=== PATIENT | male | born 1950 | race Caucasian/White ===

== ENCOUNTER → 2024-06-25 09:10 | Outpatient (REF) | payer OTHER, SELFPAY | LOC: HWRCS 09:10 | PROVIDERS: ATTENDING PHYSICIAN Nuclear Medicine Nuclear Cardiology; FAMILY PHYSICIAN Family Medicine | DX: I48.0 Paroxysmal atrial fibrillation (principal); I10 Essential (primary) hypertension; I34.0 Nonrheumatic mitral (valve) insufficiency | CPT/HCPCS: 93306 ==

== ENCOUNTER → 2024-09-07 09:04 | Day surgery (SDC) | payer OTHER, SELFPAY ==
--- NOTE | 2024-09-07 10:16 | ITS.CL.CARDI ---
Practice Architect - Cardioversion
Cardioversion
Procedure Report:
Procedure: Direct current electrical cardioversion
Pre-operative diagnosis: Persistent atrial flutter
Post-operative diagnosis: Persistent atrial flutter status post DC cardioversion to sinus rhythm
Anesthesia: MAC
Attending Physician: Adrien Sutton MD
Procedure Description: The patient was brought to the electrophysiology laboratory in the fasting state. Adherence to anticoagulation regimen was confirmed. Informed consent was obtained from the patient prior to the start of the procedure.
Electrodes were placed on the patient and connected to an external defibrillator. Monitoring of blood pressure, ECG tracings, and pulse oximetry was initiated. The pads were applied to the patient in the anterior and posterior positions. The patient
was sedated by the anesthesiologist. Subsequent 200, 300 and 360 joule biphasic synchronized shocks were delivered to the patient under MAC anesthesia. Sinus rhythm was successfully restored. The patient recovered uneventfully from MAC anesthesia.
There were no immediate post-procedure complications. The patient left the lab in good condition. The attending physician was present throughout the entire procedure.
Impression: Successful direct current cardioversion with mormon of sinus rhythm after subsequent 200, 300 and 360 joule biphasic synchronized shocks.
== END ==
LOC: CATH 09:04
PROVIDERS: ATTENDING PHYSICIAN Internal Medicine Cardiovascular Disease; FAMILY PHYSICIAN Family Medicine; OTHER PHYSICIAN Nuclear Medicine Nuclear Cardiology
DX: I48.92 Unspecified atrial flutter (principal); I48.0 Paroxysmal atrial fibrillation; I10 Essential (primary) hypertension; E78.2 Mixed hyperlipidemia; I34.0 Nonrheumatic mitral (valve) insufficiency; E11.9 Type 2 diabetes mellitus without complications; G47.33 Obstructive sleep apnea (adult) (pediatric); Z79.01 Long term (current) use of anticoagulants; Z79.84 Long term (current) use of oral hypoglycemic drugs; Z87.891 Personal history of nicotine dependence
CPT/HCPCS: 92960; 93005

== ENCOUNTER → 2025-01-28 10:24 | Outpatient (REF) | payer OTHER, SELFPAY | LOC: RAD 10:24 | PROVIDERS: ATTENDING PHYSICIAN Nurse Practitioner Family; FAMILY PHYSICIAN Family Medicine | DX: R91.1 Solitary pulmonary nodule (principal) | CPT/HCPCS: 71250 ==

== ENCOUNTER 2025-02-11 08:50 | Inpatient (IN) | payer OTHER, SELFPAY ==
[2025-02-11] VITALS (7 sets, daily range): BP systolic 106–150; BP diastolic 67–97; PULSE 2–55; BMI 34.8
--- NOTE | 2025-02-11 09:35 | W.PN.CARDCBS ---
Addendum entered and electronically signed by Yanet James, 02/11/25 18:06:
Will allow for metoprolol washout and start Tikosyn tomorrow am 02/12/25 morning following EKGs and telemetry per protocol.
Addendum entered and electronically signed by Yanet James DO 02/11/25 18:03:
I saw and examined the patient.
The Shake Sawyer's note was reviewed and I agree with the note.
Comment: Patient was seen and examined. Outpatient records/consult reviewed. Reviewed lab work, EKG and telemetry. Patient reports several months of worsening shortness of breath and edema. Denies chest pain or pressure. No syncope or near
syncope. Denies palpitations. No bleeding on Eliquis anticoagulation.Last dose of flecainide was 01/29/2025
General: No acute distress, AAOX3, OOB to chair
Heart: Irregularly irregular, bradycardic. Positive S1-S2. No murmur.
Lungs: Bronchovesicular breath sounds with fine crackles right base
Abd: Positive BS, NT/ND, neg rebound/rigidity/guarding
Ext: ++ edema
Neuro: nonfocal
Plan:
Recurrent atrial fibrillation with history of ablation in 2020 and failed flecainide presents today for Tikosyn loading
-Patient has slow ventricular rates mostly in the low 40s with no significant pauses on telemetry since his arrival couple hours ago. EKG with heart rate of 52 bpm showed a QTc of 412 ms on 02/11/2025
-He appears volume overloaded with symptoms of worsening shortness of breath/edema over the last several months
-Lab work with hemoglobin 13.4, platelets 153,000, sodium 133, potassium 3.8, BUN/creatinine 17/0.7. Creatinine clearance 134, LFTs within normal limits. TSH within normal limits. proBNP 1570
-Continue to monitor telemetry.
-Stop metoprolol XL due to bradycardia
-Start IV Lasix 40 mg daily
-Start Tikosyn to 50 mcg every 12 tonight and monitor telemetry/QT interval closely in the setting of underlying bradycardia
-Monitor electrolytes; keep K greater than 4, mag greater than 2
-Continue uninterrupted Eliquis anticoagulation
-Will make NPO for possible CV after 5th dose on Tuesday
History of resistant hypertension on multiple hypertensive agents
-Monitor blood pressure trends particularly with discontinuation of metoprolol
-For now, his outpatient doses of hydralazine 100 mg TID, losartan 50 mg BID and clonidine 0.1 mg BID have been continued.
-Pending HR response, might need to wean and stop clonidine as well and could replace with nifedipine.
Obstructive sleep apnea�follows with pulmonary on BiPAP
Type 2 diabetes mellitus�continue outpatient therapy including metformin.
Original Note:
Today's Communication / Plan
-
Start with Tikosyn 250 mcg q 12 hours despite CrCl of 134, follow tele
Stopping Toprol XL due to bradycardia
Start Lasix 40 mg IV daily for acute HFpEF
Impression / Plan
-
PCP: Dr. Madhu Gonzáles
Card: Dr. Pugh
EP: Dr. Chapa
Impression:
Direct admission for Tikosyn loading 02/11/2025
Paroxysmal A-fib
s/p PVI 11/2020
Previous flecainide therapy, last dose 01/29/2025
Chronic Eliquis OAC
HTN
BLAS
Known Mobitz 1 type II AV block after CV in 2022
Acute HFpEF
Echo 06/25/2024: EF 60%, trace MR, aortic sclerosis without stenosis, normal RV, ascending aorta 3.9 cm
Plan:
-Patient was seen by EP in the cardiology office on 01/29/2025 to discuss recurrent A-fib despite flecainide therapy. Patient was offered the option of repeat ablation versus initiation of an alternative AAD in the form of Tikosyn and he opted for
the latter. He stopped taking his flecainide that day and also his Toprol-XL dose was lowered to 50 mg daily at that time. Patient denies any intercurrent illnesses and presents today in A-fib with slow ventricular response at 52 bpm, QTc 412 ms
on ECG reviewed by me 02/11/2025.
-ECG reviewed by me and is in slow A-fib with QTc 412 ms
-CrCl calculated by me is 134. Per EP cardiology office note the patient should be started on Tikosyn 250 mcg q 12 hours.
-Follow ECGs 2 hours after each dose
-Will stop Toprol XL and follow HR
-Will make NPO for possible CV after 5th dose on Tuesday
-Follow BP. For now, his outpatient doses of hydralazine 100 mg TID, losartan 50 mg BID and clonidine 0.1 mg BID have been continued.
-Pending HR response, might need to wean and stop clonidine as well and could replace with nifedipine.
-Appears to be in acute HF with LE edema. Start Lasix 40 mg IV daily now. Patient was taking Lasix 20 mg PO daily prior to admission.
Progress Note - Etl Data Architect
Subjective
Date of Service: February 11, 2025
No palpitations
Objective
Vital Signs and I&O:
Vital Signs
Temp Pulse Resp BP Pulse Ox
98.1 F 56 20 150/89 96
02/11/25 09:19 02/11/25 09:21 02/11/25 09:19 02/11/25 09:21 02/11/25 09:19
Vital Signs
Temp Pulse Resp BP Pulse Ox
98.1 F 56 20 150/89 96
02/11/25 09:19 02/11/25 09:21 02/11/25 09:19 02/11/25 09:21 02/11/25 09:19
Physical Exam
Physical Exam
GEN: AAOx3
HEENT: MMM
LUNGS: RA. No audible wheeze
CV: Afib on tele
ABD: ND
EXT: +1 edema
NEURO: Gross non-focal
SKIN: No rash
[2025-02-11 10:25] LABS: % Basophils 0.9 % (0-2); % Eosinophils 2.8 % (0-6); % Immature Granulocytes 0.3 % (0-0.5); % Monocytes 9.2 % (1.7-9.3); % Neutrophils 61.8 % (42.2-75.2); Absolute Basophils 0.1 10^3/uL (0-0.2); Absolute Eosinophils 0.2 10^3/uL (0-0.7); Absolute Lymphocytes 1.7 10^3/uL (1.2-3.4); Absolute Monocytes 0.6 10^3/uL (0.1-0.6); Absolute Neutrophils 4.1 10^3/uL (1.4-6.5); Hematocrit 38.1 % (39.0-52.0); Hemoglobin 13.4 g/dL (13.0-18.0); Mean Corp Hgb Conc. 35.2 g/dL (33.0-37.0); Mean Corpuscular Hgb 29.8 pg (27.0-31.0); Mean Corpuscular Volume 84.7 fL (80.0-94.0); Mean Platelet Volume 11.9 fL (7.4-10.4); Nucleated Red Blood Cells % 0 % (-); Platelet Count 153 10^3/uL (130-400); Red Cell Dist. Width 13.5 % (11.5-14.5); White Blood Cell Count 6.7 10^3/uL (4.8-10.8)
[2025-02-11] MEDS: ELIQUIS PO (10:31)
[2025-02-11] MEDS: CATAPRES PO (10:31)
[2025-02-11] MEDS: COZAAR PO (10:32)
[2025-02-11] MEDS: MAGNESIUM OXIDE PO (10:32)
[2025-02-11 11:00] LABS: ALT (SGPT) 17 U/L (0-50); AST (SGOT) 25 U/L (17-59); Alkaline Phosphatase 70 U/L (38-126); Blood Urea Nitrogen 17 mg/dl (9-20); Calcium 9.9 mg/dl (8.4-10.2); Carbon Dioxide 25 mmol/L (22-30); Estimated Creatinine Clearance 107 ml/min; Glucose 146 mg/dl (70-99); Magnesium 1.8 mg/dl (1.6-2.3); Potassium 3.8 mmol/L (3.5-5.1); Sodium 133 mmol/L (135-145); Total Bilirubin 1.1 mg/dl (0.2-1.3); Total Protein 6.9 g/dl (6.3-8.2); eGFR > 60.00
--- NOTE | 2025-02-11 11:10 | PTCARENOTE ---
Pt received as direct admit from home for Tikosyn initiation. AAOx3. Able to ambulate independently in room without assist device. A.fib on tele, HRs 30s-70s. EKG obtained for baseline QTc. R AC PIV placed and labs collected. NECK BAND OPERATOR Viridiana Johns notified
of pt HRs occasionally dropping into 30s but not sustaining. Pt did take all of his morning medications prior to arrival. BPs stable. Pt asymptomatic. Pt resting in chair at this time, call aguayo in reach.
--- NOTE | 2025-02-11 11:15 | W.CARD.TIKOS ---
Initiate Tikosyn
-
I verify that the patient has not taken any verapamil (Isoptin/Calan), ketoconazole (Nizoral), cimetidine (Tagamet), trimethoprim (Trimpex), trimethoprim/sulfamethoxazole (Bactrim), megesterol (Megace), prochlorperazine (Compazine),
hydrochlorothiazide (HCTZ), dolutegravir (Tivicay) or any Class I or Class III anti-arrhythmic within the last three days
AND
I verify that the patient has not taken amiodarone within the last THREE months, or that the patient's amiodarone plasma concentration is <0.3 mcg/mL.
Creatinine 0.7 mg/dL (0.7-1.3) 02/11/25 10:16
Estimated Creat Clear 107 ml/min 02/11/25 10:16
CrCl calculated by me is 134
Does patient have a Ventricular Conduction Abnormality: No
I have assessed the baseline QTc interval (using QT for heart rate less than 60 bpm) and deemed the patient is appropriate for Dofetilide therapy. I understand that Tikosyn is contraindicated if the QTc is >440msec (500msec in patients with
ventricular conduction abnormalities).
Baseline QTc (in msec): 412
Ordering Physician: Keven Chapa
[2025-02-11 11:42] LABS: Chloride 102 mmol/L (98-107)
[2025-02-11] MEDS: LASIX 40 MG IV (12:21)
--- NOTE | 2025-02-11 14:14 | PTCARENOTE ---
Due to pt low HRs will hold off on Tikosyn initiation today and start medication tomorrow. Toprol XL 50mg discontinued.
--- NOTE | 2025-02-11 14:14 | CM ---
Chart reviewed. Patient is independent of ADLS, lives with his in a apartment in Independent Living at [facility], 4th floor, elevator access, 0 DME. Plan is for the patient to return home. CM to follow
--- NOTE | 2025-02-11 14:15 | CM ---
Pricing on Dofetilide through the patient's [facility] is $11.61 for a 30 day supply. Will confirm dosage with pharmacy prior to discharge. Patient will need a 3 day supply at discharge.
[2025-02-11 15:51] LABS: NT-proBNP 1570 pg/ml
[2025-02-11 16:14] LABS: TSH Reflex To Free T4 1.15 uIU/ml (0.47-4.68)
[2025-02-11] MEDS: GLUCOPHAGE XR EXTENDED RELEASE 1000 MG PO (16:29)
[2025-02-11] MEDS: APRESOLINE 100 MG PO ×2 (16:30→22:19)
[2025-02-11] MEDS: COZAAR 50 MG PO (19:42)
[2025-02-11] MEDS: CATAPRES 0.1 MG PO (19:43)
[2025-02-11] MEDS: ELIQUIS 5 MG PO (19:43)
[2025-02-11] MEDS: TIMOPTIC 0.5% OPHTHALMIC SOLUTION 1 DROP OPHTH (19:44)
[2025-02-11 21:56] LABS: Glucose - Point of Care 113 mg/dl (70-99)
[2025-02-11] MEDS: PEPCID 20 MG PO (22:19)
[2025-02-11] MEDS: XALATAN OPHTHALMIC SOLUTION 1 DROP OPHTH (22:19)
--- NOTE | 2025-02-11 22:47 | PTCARENOTE ---
Received patient at change of shift. Afib on the monitor, HR in the 50s. Asymptomatic, VSS. BiPAP in room for overnight use. No complaints of pt at this time, call aguayo within reach.
[2025-02-12] VITALS (7 sets, daily range): BP systolic 106–144; BP diastolic 59–125; BMI 34.3
[2025-02-12 05:30] LABS: Hematocrit 36.5 % (39.0-52.0); Hemoglobin 13.4 g/dL (13.0-18.0); Mean Corp Hgb Conc. 36.7 g/dL (33.0-37.0); Mean Corpuscular Hgb 30.7 pg (27.0-31.0); Mean Corpuscular Volume 83.7 fL (80.0-94.0); Mean Platelet Volume 11.8 fL (7.4-10.4); Platelet Count 127 10^3/uL (130-400); Red Blood Cell Count 4.36 10^6/uL (4.70-6.10); Red Cell Dist. Width 13.2 % (11.5-14.5); White Blood Cell Count 5.8 10^3/uL (4.8-10.8)
[2025-02-12 05:55] LABS: Blood Urea Nitrogen 19 mg/dl (9-20); Calcium 9.8 mg/dl (8.4-10.2); Carbon Dioxide 25 mmol/L (22-30); Chloride 102 mmol/L (98-107); Estimated Creatinine Clearance 93 ml/min; Glucose 129 mg/dl (70-99); Potassium 3.6 mmol/L (3.5-5.1); Sodium 137 mmol/L (135-145); eGFR > 60.00
[2025-02-12 06:45] LABS: Hepatitis C Antibody Negative (Negative)
[2025-02-12 07:52] LABS: Glucose - Point of Care 127 mg/dl (70-99)
[2025-02-12] MEDS: NOVOLOG FLEXPEN-LOW RESISTANCE SC (07:56)
--- NOTE | 2025-02-12 08:18 | W.PN.CARDCBS ---
Addendum entered and electronically signed by Augustine Pugh DO 02/12/25 12:28:
.
Time with case 52 minutes.
Addendum entered and electronically signed by Augustine Pugh DO 02/12/25 12:00:
I saw and examined the patient.
The Automatic Lathe Operator's note was reviewed and I agree with the note.
Comment:
Plan:
Continue IV diuresis
HR improved off beta ivy.
Start Tikosyn 250 mcg BID. Reviewed with EP.
Pt was appreciative.
CV February 14 if he fails to convert.
Original Note:
Today's Communication / Plan
-
Ongoing IV diuresis
HR has improved and will start Tikosyn 250 mcg every 12 hours now
Impression / Plan
-
PCP: Dr. Madhu Gonzáles
Card: Dr. Pugh
EP: Dr. Chapa
Impression:
Direct admission for Tikosyn loading 02/11/2025
Paroxysmal A-fib
s/p PVI 11/2020
Previous flecainide therapy, last dose 01/29/2025
Chronic Eliquis OAC
HTN
BLAS
Known Mobitz 1 type II AV block after CV in 2022
Acute HFpEF
Hypomagnesemia
Low normal potassium level
Echo 06/25/24: EF 60%, trace MR, aortic sclerosis without stenosis, normal RV, ascending aorta 3.9 cm
Plan:
-Weight is down 4 lbs overnight with Lasix 40 mg IV daily. Patient has some symptomatic improvement with less SOB. Will continue with attempts at IV diuresis. Patient was taking Lasix 20 mg PO daily prior to admission
-HR improved following d/c of outpatient dose Toprol XL 50 mg daily
-Start Tikosyn 250 mcg now, orders placed by me. CrCl calculated by me is 134. Per EP cardiology office note the patient should be started on Tikosyn 250 mcg q 12 hours.
-ECG reviewed by me and is in slow A-fib with QTc 412 ms
-Will make NPO for possible CV after 5th dose on
-BP stable on his outpatient doses of hydralazine 100 mg TID, losartan 50 mg BID and clonidine 0.1 mg BID.
-Will supplement magnesium and potassium on 02/12/2025, orders placed by me
HPI: Patient was seen by EP in the cardiology office on 01/29/2025 to discuss recurrent A-fib despite flecainide therapy. Patient was offered the option of repeat ablation versus initiation of an alternative AAD in the form of Tikosyn and he opted
for the latter. He stopped taking his flecainide that day and also his Toprol-XL dose was lowered to 50 mg daily at that time. Patient denies any intercurrent illnesses and presents today in A-fib with slow ventricular response at 52 bpm, QTc 412
ms on ECG reviewed by me 02/11/2025.
Progress Note - Dough Panner
Subjective
Date of Service: February 12, 2025
Less SOB
Objective
Labs:
02/12/25 05:07
02/12/25 05:07
Labs
Hgb 13.4 g/dL (13.0-18.0) 02/12/25 05:07
Hct 36.5 % (39.0-52.0) L 02/12/25 05:07
Plt Count 127 10^3/uL (130-400) L 02/12/25 05:07
Sodium 137 mmol/L (135-145) 02/12/25 05:07
Potassium 3.6 mmol/L (3.5-5.1) 02/12/25 05:07
BUN 19 mg/dl (9-20) 02/12/25 05:07
Creatinine 0.8 mg/dL (0.7-1.3) 02/12/25 05:07
Glucose 129 mg/dl (70-99) H 02/12/25 05:07
Vital Signs and I&O:
Vital Signs
Temp Pulse Resp BP Pulse Ox
98.4 F 52 20 128/74 97
02/12/25 07:18 02/12/25 07:15 02/12/25 07:18 02/12/25 07:15 02/12/25 07:18
Vital Signs
Temp Pulse Resp BP Pulse Ox
98.4 F 52 20 128/74 97
02/12/25 07:18 02/12/25 07:15 02/12/25 07:18 02/12/25 07:15 02/12/25 07:18
Intake & Output
02/10/25 02/11/25 02/12/25 02/13/25
06:59 06:59 06:59 06:59
Intake Total 360 / 360
Output Total 1300 / 1300
Balance -940 / -940
Physical Exam
Physical Exam
GEN: AAOx3
HEENT: MMM
LUNGS: RA. No audible wheeze
CV: Afib on tele
ABD: ND
EXT: +1 edema
NEURO: Gross non-focal
SKIN: No rash
[2025-02-12] MEDS: GLUCOPHAGE XR EXTENDED RELEASE 1000 MG PO ×2 (08:24→16:03)
[2025-02-12] MEDS: MAGNESIUM OXIDE 500 MG PO ×2 (08:24→11:32)
[2025-02-12] MEDS: COZAAR 50 MG PO ×2 (08:24→20:51)
[2025-02-12] MEDS: ELIQUIS 5 MG PO ×2 (08:25→20:51)
[2025-02-12] MEDS: LASIX 40 MG IV (08:25)
[2025-02-12] MEDS: APRESOLINE 100 MG PO ×3 (08:25→21:30)
[2025-02-12] MEDS: TIMOPTIC 0.5% OPHTHALMIC SOLUTION 1 DROP OPHTH ×2 (08:26→20:51)
[2025-02-12] MEDS: CATAPRES 0.1 MG PO ×2 (08:30→20:51)
[2025-02-12] MEDS: TIKOSYN 250 MCG PO ×2 (10:25→21:30)
[2025-02-12] MEDS: KCL 40 MEQ PO (11:32)
--- NOTE | 2025-02-12 11:56 | CM ---
Chart reviewed. Patient is independent of ADLS, lives with his in independent living in an apartment at [facility], 4th floor, elevator access. Patient will need a 3 day supply to go home. CM to confirm availability on day of discharge.
Plan is for the patient to return home. CM to follow
[2025-02-12 12:01] LABS: Glucose - Point of Care 153 mg/dl (70-99)
[2025-02-12] MEDS: NOVOLOG FLEXPEN-LOW RESISTANCE 1 UNITS SC ×2 (12:44→16:26)
--- NOTE | 2025-02-12 14:01 | PTCARENOTE ---
1st dose of Tikosyn given today. Pt baseline QTc 412ms. QTc 455ms 2hrs post Tikosyn administration.
[2025-02-12 16:25] LABS: Glucose - Point of Care 157 mg/dl (70-99)
--- NOTE | 2025-02-12 20:30 | PTCARENOTE ---
Assumed care of pt from prev nsg shift; Pt AAOx3 w/no c/o CP or SOB. Pt OOB to CH, ambulating in rm frequently w/steady gait. Pt's VSS w/HR in the 60's-70's & BP 123/63. Pt is AFlutter on telemetry monitoring. Discussed plan of care w/pt, including
timing of next Tikosyn dose this evening & 2 hr post EKG. Pt verbalized understanding. Pt w/call aguayo within reach & no addtl needs at this time.
[2025-02-12] MEDS: XALATAN OPHTHALMIC SOLUTION 1 DROP OPHTH (21:30)
[2025-02-12] MEDS: PEPCID 20 MG PO (21:30)
[2025-02-12 21:38] LABS: Glucose - Point of Care 166 mg/dl (70-99)
[2025-02-13] VITALS (10 sets, daily range): BP systolic 99–143; BP diastolic 60–122; PULSE 2–62; BMI 34.2
[2025-02-13 04:47] LABS: Blood Urea Nitrogen 21 mg/dl (9-20); Calcium 10.3 mg/dl (8.4-10.2); Carbon Dioxide 26 mmol/L (22-30); Chloride 100 mmol/L (98-107); Estimated Creatinine Clearance 92 ml/min; Glucose 125 mg/dl (70-99); Sodium 138 mmol/L (135-145); eGFR > 60.00
[2025-02-13 07:57] LABS: Glucose - Point of Care 128 mg/dl (70-99)
[2025-02-13] MEDS: NOVOLOG FLEXPEN-LOW RESISTANCE SC (08:23)
--- NOTE | 2025-02-13 08:29 | PTCARENOTE ---
Received patient this morning ambulating in his room after washing up, remains in A flutter. Scheduled for his 3rd tikosyn dose this morning.
--- NOTE | 2025-02-13 08:43 | W.PN.CARDCBS ---
Addendum entered and electronically signed by Magdiel Gutierrez MD 02/13/25 09:53:
Patient seen, interviewed and examined by me.
Well-appearing, no acute distress
Irregular rate and rhythm with normal S1 and S2, no S3 no S4. There is a grade 1/6 apical holosystolic murmur and no rubs. PMI is normally placed.
Lungs are clear to auscultation bilaterally without wheezes rales or rhonchi.
Abdomen soft nontender nondistended with normoactive bowel sounds
Extremities show trace pretibial edema bilaterally no clubbing or cyanosis.
Neurologic exam is grossly nonfocal.
Laboratory studies reviewed, stable renal function with BUN and creatinine 21 and 0.8. Potassium 4
Electrocardiogram from February 12, 2025 at 11:30 PM is reviewed by me and finds atypical atrial flutter with ventricular rate of 63 bpm and corrected QT interval of 448 ms
Maintain dofetilide at 250 mcg every 12 hours and continue scheduled ECGs during dofetilide loading, he will receive his scheduled fifth dose of dofetilide tomorrow morning
Reassess chemistry to include magnesium in the morning
N.p.o. after midnight for likely cardioversion in the morning.
Total time spent today was 40 minutes in preparing to see the patient, seeing the patient and coordination of care. This included review of recent laboratory evaluations, cardiact testing, imaging studies, primary care rtecords, specialty
consultations, hospital records, as well as personally interviewing and examining the patient, which included discussion of their tests, review/ordering medications, and communicating with other healthcare professionals and also treatment planning
as well as counseling.
Original Note:
Today's Communication / Plan
-
Cont Tikosyn 250 mcg q 12 hours, QTc stable on ECG reviewed by me
CV in AM if fails to spontaneously convert
Recheck BMP and magnesium level in a.m., ordered by me
Impression / Plan
-
PCP: Dr. Madhu Gonzáles
Card: Dr. Pugh
EP: Dr. Chapa
Impression:
Direct admission for Tikosyn loading 02/11/2025
Paroxysmal A-fib
s/p PVI 11/2020
Previous flecainide therapy, last dose 01/29/2025
Paroxysmal typical atrial flutter
Chronic Eliquis OAC
HTN
BLAS
Known Mobitz 1 type II AV block after CV in 2022
Acute HFpEF
Hypomagnesemia
Low normal potassium level
Echo 06/25/24: EF 60%, trace MR, aortic sclerosis without stenosis, normal RV, ascending aorta 3.9 cm
Plan:
-QTc 448 ms following 2nd dose of Tikosyn 250 mcg that was given Tuesday night. 5th dose scheduled for morning.
-ECG 02/12/2025 reviewed by me and appears to be atrial flutter with QTc 440 ms
-Reviewed again with patient that if he fails to convert to SR we will plan on CV 02/14/2025
-HR has improved with d/c of outpatient dose of Toprol XL
-Weight is stable at 225 lbs on 02/13/2025 and although no appreciable drop in weight compared to 02/12/2025 the patient continues to have symptomatic improvement in LE edema.
-Continue with Lasix 40 mg IV daily and transition to Lasix 40 mg PO daily on 02/14/2025. Patient was taking Lasix 20 mg PO daily prior to admission
-BP stable on his outpatient doses of hydralazine 100 mg TID, losartan 50 mg BID and clonidine 0.1 mg BID.
-Repeat BMP and magnesium level ordered for AM by me
HPI: Patient was seen by EP in the cardiology office on 01/29/2025 to discuss recurrent A-fib despite flecainide therapy. Patient was offered the option of repeat ablation versus initiation of an alternative AAD in the form of Tikosyn and he opted
for the latter. He stopped taking his flecainide that day and also his Toprol-XL dose was lowered to 50 mg daily at that time. Patient denies any intercurrent illnesses and presents today in A-fib with slow ventricular response at 52 bpm, QTc 412
ms on ECG reviewed by me 02/11/2025.
Progress Note - Merchant Miller
Subjective
Date of Service: February 13, 2025
Feels well, no palpitations
Objective
Labs:
02/12/25 05:07
02/13/25 03:41
Labs
Hgb 13.4 g/dL (13.0-18.0) 02/12/25 05:07
Hct 36.5 % (39.0-52.0) L 02/12/25 05:07
Plt Count 127 10^3/uL (130-400) L 02/12/25 05:07
Sodium 138 mmol/L (135-145) 02/13/25 03:41
Potassium 4.0 mmol/L (3.5-5.1) 02/13/25 03:41
BUN 21 mg/dl (9-20) H 02/13/25 03:41
Creatinine 0.8 mg/dL (0.7-1.3) 02/13/25 03:41
Glucose 125 mg/dl (70-99) H 02/13/25 03:41
Vital Signs and I&O:
Vital Signs
Temp Pulse Resp BP Pulse Ox
97.8 F 64 18 123/85 98
02/13/25 07:43 02/13/25 08:15 02/13/25 07:43 02/13/25 07:43 02/13/25 07:43
Vital Signs
Temp Pulse Resp BP Pulse Ox
97.8 F 64 18 123/85 98
02/13/25 07:43 02/13/25 08:15 02/13/25 07:43 02/13/25 07:43 02/13/25 07:43
Intake & Output
02/11/25 02/12/25 02/13/25 02/14/25
06:59 06:59 06:59 06:59
Intake Total 360 / 360 1440 / 1440
Output Total 1300 / 1300 650 / 650
Balance -940 / -940 790 / 790
Physical Exam
Physical Exam
GEN: AAOx3
HEENT: MMM
LUNGS: RA. No audible wheeze
CV: Aflutt on tele
ABD: ND
EXT: +1 edema
NEURO: Gross non-focal
SKIN: No rash
[2025-02-13] MEDS: ELIQUIS 5 MG PO ×2 (08:55→20:35)
[2025-02-13] MEDS: GLUCOPHAGE XR EXTENDED RELEASE 1000 MG PO ×2 (08:55→17:19)
[2025-02-13] MEDS: MAGNESIUM OXIDE 500 MG PO (08:56)
[2025-02-13] MEDS: CATAPRES 0.1 MG PO ×2 (08:56→20:35)
[2025-02-13] MEDS: APRESOLINE 100 MG PO ×3 (08:56→22:36)
[2025-02-13] MEDS: COZAAR 50 MG PO ×2 (08:57→20:34)
[2025-02-13] MEDS: LASIX 40 MG IV (08:57)
[2025-02-13] MEDS: TIMOPTIC 0.5% OPHTHALMIC SOLUTION 1 DROP OPHTH ×2 (08:59→20:39)
[2025-02-13] MEDS: TIKOSYN 250 MCG PO ×2 (08:59→20:34)
[2025-02-13 12:08] LABS: Glucose - Point of Care 192 mg/dl (70-99)
--- NOTE | 2025-02-13 13:20 | CM ---
Chart reviewed. Patient is independent of ADLS, lives with his in an apartment [facility], 4th floor, elevator access, 0 DME. Patient will need a 3 day supply of Dofetilide and confirmation of availability of patient's pharmacy. Plan
is for the patient to return home. CM to follow
[2025-02-13] MEDS: NOVOLOG FLEXPEN-LOW RESISTANCE 1 UNITS SC ×2 (13:45→17:19)
[2025-02-13 17:11] LABS: Glucose - Point of Care 165 mg/dl (70-99)
[2025-02-13] MEDS: XALATAN OPHTHALMIC SOLUTION 1 DROP OPHTH (22:36)
[2025-02-13] MEDS: PEPCID 20 MG PO (22:36)
[2025-02-13 22:43] LABS: Glucose - Point of Care 136 mg/dl (70-99)
[2025-02-14] VITALS (9 sets, daily range): BP systolic 92–142; BP diastolic 58–82; PULSE 2–64; BMI 34.2
[2025-02-14 04:33] LABS: Blood Urea Nitrogen 22 mg/dl (9-20); Calcium 10.4 mg/dl (8.4-10.2); Carbon Dioxide 26 mmol/L (22-30); Chloride 100 mmol/L (98-107); Estimated Creatinine Clearance 92 ml/min; Glucose 127 mg/dl (70-99); Potassium 3.9 mmol/L (3.5-5.1); Sodium 137 mmol/L (135-145); eGFR > 60.00
[2025-02-14] MEDS: TIKOSYN 250 MCG PO (07:40)
[2025-02-14] MEDS: APRESOLINE 100 MG PO (07:42)
[2025-02-14 07:44] LABS: Glucose - Point of Care 115 mg/dl (70-99)
[2025-02-14] MEDS: NOVOLOG FLEXPEN-LOW RESISTANCE SC ×2 (07:44→13:10)
[2025-02-14] MEDS: CATAPRES 0.1 MG PO (07:45)
[2025-02-14] MEDS: ELIQUIS 5 MG PO (07:46)
[2025-02-14] MEDS: COZAAR 50 MG PO (07:46)
--- NOTE | 2025-02-14 07:55 | PTCARENOTE ---
Received patient this morning, remains in A flutter. Given AM meds with a sip of water, report given to Murtaza. Patient taken for CV.
--- NOTE | 2025-02-14 08:46 | ITS.CL.CARDI ---
Three Dimensional Art Instructor - Cardioversion
Cardioversion
Procedure Report:
Date of Procedure: February 14 2025
Procedure: Cardioversion
Indication: Symptomatic atrial fibrillation
Performing Physician: Augustine Pugh DO, FACC
Technique: The patient was brought to the holding area. Signed informed consent was obtained. A time out was called and performed. The patient was anesthetized by the anesthesia service. Anticoagulation status was reviewed and appropriate. R2 pads
were placed anteriorly and posteriorly. A 250 J synchronized biphasic shock which did not convert to sinus. He then had a 300 J synchronized biphasic shock which restored normal sinus rhythm without significant bradycardia. There were no
complications.
Conclusion: Uncomplicated cardioversion from atrial fibrillation to sinus rhythm.
Recommendation: Routine post cardioversion care. Continue probation agent anticoagulation.
--- NOTE | 2025-02-14 08:48 | W.PN.CARDCBS ---
Today's Communication / Plan
-
successful cv
d/c today
Impression / Plan
-
PCP: Dr. Madhu Gonzáles
Card: Dr. Pugh
EP: Dr. Chapa
Impression:
Direct admission for Tikosyn loading 02/11/2025
Paroxysmal A-fib
s/p PVI 11/2020
Previous flecainide therapy, last dose 01/29/2025
Paroxysmal typical atrial flutter
Chronic Eliquis OAC
HTN
BLAS
Known Mobitz 1 type II AV block after CV in 2022
Acute HFpEF
Hypomagnesemia
Low normal potassium level
Echo 06/25/24: EF 60%, trace MR, aortic sclerosis without stenosis, normal RV, ascending aorta 3.9 cm
Plan:
QTc stable.
Cardioversion today successfully restored sinus rhythm
HR stable off Toprol
Wt stable, transition to Lasix 40 mg PO daily. Patient was taking Lasix 20 mg PO daily prior to admission
BP stable on his outpatient doses of hydralazine 100 mg TID, losartan 50 mg BID and clonidine 0.1 mg BID.
HPI: Patient was seen by EP in the cardiology office on 01/29/2025 to discuss recurrent A-fib despite flecainide therapy. Patient was offered the option of repeat ablation versus initiation of an alternative AAD in the form of Tikosyn and he opted
for the latter. He stopped taking his flecainide that day and also his Toprol-XL dose was lowered to 50 mg daily at that time. Patient denies any intercurrent illnesses and presents today in A-fib with slow ventricular response at 52 bpm, QTc 412
ms on ECG reviewed by me 02/11/2025.
Progress Note - Legal Investigator
Subjective
Date of Service: February 14, 2025
Pt seen and examined. No complaints. No chest pain or shortness of breath.
Objective
Labs:
02/12/25 05:07
02/14/25 02:57
Labs
Hgb 13.4 g/dL (13.0-18.0) 02/12/25 05:07
Hct 36.5 % (39.0-52.0) L 02/12/25 05:07
Plt Count 127 10^3/uL (130-400) L 02/12/25 05:07
Sodium 137 mmol/L (135-145) 02/14/25 02:57
Potassium 3.9 mmol/L (3.5-5.1) 02/14/25 02:57
BUN 22 mg/dl (9-20) H 02/14/25 02:57
Creatinine 0.8 mg/dL (0.7-1.3) 02/14/25 02:57
Glucose 127 mg/dl (70-99) H 02/14/25 02:57
Vital Signs and I&O:
Vital Signs
Temp Pulse Resp BP Pulse Ox
97.6 F 65 20 138/82 97
02/14/25 08:28 02/14/25 07:42 02/14/25 08:28 02/14/25 07:42 02/14/25 08:28
Vital Signs
Temp Pulse Resp BP Pulse Ox
97.6 F 65 20 138/82 97
02/14/25 08:28 02/14/25 07:42 02/14/25 08:28 02/14/25 07:42 02/14/25 08:28
Intake & Output
02/12/25 02/13/25 02/14/25 02/15/25
06:59 06:59 06:59 06:59
Intake Total 360 / 360 1440 / 1440 2160 / 2160
Output Total 1300 / 1300 650 / 650 900 / 900
Balance -940 / -940 790 / 790 1260 / 1260
Physical Exam
Physical Exam
General: No acute distress, AAOX3
Neck: Negative JVD
Heart: Regular, Negative S3 positive S1/S2, Negative S4, No murmur
Lungs: CTA b/l, negative wheezes/rales/rhonchi
Abd: Positive BS, NT/ND, neg rebound/rigidity/guarding
Ext: Negative cyanosis/clubbing/edema
Neuro: nonfocal
--- NOTE | 2025-02-14 09:27 | PTCARENOTE ---
Patient returned from CV, patient in SR with 1st degree HB. Assisted oob to the chair, AAO x 3 but drowsy, offers no complaints, monitoring VS as ordered. Call aguayo in reach.
--- NOTE | 2025-02-14 09:54 | W.DS.TRANS ---
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
-
Discharge Instructions:
Discharge Diagnosis/Procedures Tikosyn loading for persistent atrial
fibrillation and atrial flutter
Diet Low Fat
Activity Other activity
Driving Restrictions No driving for 24 hours
Bathing Restrictions None
Instructions:
Stand-Alone Forms: DC Instructions- Cath/EP Lab
Changes to Home Medications: Yes
Discharge Medications:
DC Medications w/original date entered in [facility]
furosemide 20 mg tablet 20 mg PO DAILY Fluid retention/Swelling 01/30/20
latanoprost 0.005 % eye drops 1 drp BOTH EYES HS Eye Condition 01/30/20
cholecalciferol (vitamin D3) 50 mcg (2,000 unit) tablet 1,000 units PO DAILY Supplement 12/16/20
hydralazine 100 mg tablet 100 mg PO TID bp 06/09/23
timolol maleate 0.5 % once daily eye drops 1 drp ophthalmic (eye) BID Eye Condition 06/09/23
apixaban 5 mg tablet (Eliquis) 5 mg PO BID blood thinner 09/07/24
clonidine HCl 0.1 mg tablet 0.1 mg PO BID bp 09/07/24
famotidine 20 mg tablet (Pepcid) 20 mg PO DAILY gerd 09/07/24
losartan 50 mg tablet 50 mg PO BID bp 09/07/24
magnesium oxide 400 mg PO DAILY Supplement 09/07/24
metformin 1,000 mg tablet 1,000 mg PO BID dm 09/07/24
dofetilide 250 mcg capsule (Tikosyn) 250 mcg PO Q12H Arrhythmia #60 caps 02/14/25
Home Medication Changes
Toprol-XL was stopped
New to Tikosyn
Pending Results: No
--- NOTE | 2025-02-14 10:01 | W.DS.TRANS ---
DC Summary - Pt Sitter
-
Discharge Instructions:
Discharge Diagnosis/Procedures Tikosyn loading for persistent atrial
fibrillation and atrial flutter
Diet 2 Gram Sodium,Restrict fluids to 64 oz
Activity Other activity
Driving Restrictions No driving for 24 hours
Bathing Restrictions None
Specialty Instructions Weigh Daily
Instructions:
Stand-Alone Forms: DC Instructions- Cath/EP Lab
Changes to Home Medications: Yes
Discharge Medications:
DC Medications w/original date entered in [employer]
latanoprost 0.005 % eye drops 1 drp BOTH EYES HS Eye Condition 01/30/20
cholecalciferol (vitamin D3) 50 mcg (2,000 unit) tablet 1,000 units PO DAILY Supplement 12/16/20
hydralazine 100 mg tablet 100 mg PO TID bp 06/09/23
timolol maleate 0.5 % once daily eye drops 1 drp ophthalmic (eye) BID Eye Condition 06/09/23
apixaban 5 mg tablet (Eliquis) 5 mg PO BID blood thinner 09/07/24
clonidine HCl 0.1 mg tablet 0.1 mg PO BID bp 09/07/24
famotidine 20 mg tablet (Pepcid) 20 mg PO DAILY gerd 09/07/24
losartan 50 mg tablet 50 mg PO BID bp 09/07/24
magnesium oxide 400 mg PO DAILY Supplement 09/07/24
metformin 1,000 mg tablet 1,000 mg PO BID dm 09/07/24
dofetilide 250 mcg capsule (Tikosyn) 250 mcg PO Q12H Arrhythmia #60 caps 02/14/25
furosemide 40 mg tablet (Lasix) 40 mg PO DAILY Heart Failure #30 tabs 02/14/25
Home Medication Changes
Toprol XL stopped
Lasix dose increased
New to Tikosyn
Pending Results: No
[2025-02-14] MEDS: GLUCOPHAGE XR EXTENDED RELEASE 1000 MG PO (11:30)
[2025-02-14] MEDS: MAGNESIUM OXIDE 500 MG PO (11:30)
[2025-02-14] MEDS: TIMOPTIC 0.5% OPHTHALMIC SOLUTION 1 DROP OPHTH (11:30)
[2025-02-14] MEDS: LASIX 40 MG IV (11:31)
--- NOTE | 2025-02-14 11:43 | CM ---
Confirmed with [facility] Dofetilide 250 mq 60 tablets in stock. RN to give patient 3 day supply to take home.
--- NOTE | 2025-02-14 14:17 | PTCARENOTE ---
Remained in [facility] with 1st degree HB and is ok for discharge. Reviewed new medication, changes in meds and follow up appointments and the patient states his understanding. Patient discharged home with his son.
== END 2025-02-14 13:40 | disposition home or self-care (01) | DRG 308 ==
LOC: IVU 08:50
PROVIDERS: Nuclear Medicine Nuclear Cardiology; Physician Assistant Medical; ADMITTING PHYSICIAN Internal Medicine Cardiovascular Disease; FAMILY PHYSICIAN Family Medicine
PROC: 5A2204Z Restoration of Cardiac Rhythm, Single (ICD-10-PCS; 2025-02-14)
DX: I48.0 Paroxysmal atrial fibrillation (principal); I50.31 Acute diastolic (congestive) heart failure; Z79.01 Long term (current) use of anticoagulants; E11.9 Type 2 diabetes mellitus without complications; I11.0 Hypertensive heart disease with heart failure; E83.42 Hypomagnesemia; G47.33 Obstructive sleep apnea (adult) (pediatric); I48.3 Typical atrial flutter
CPT/HCPCS: 80048; 80053; 82962; 83735; 83880; 84443; 85025; 85027; 86803; 92960; 93005; 94660

== ENCOUNTER → 2025-05-23 07:34 | Outpatient (REF) | payer OTHER, SELFPAY | LOC: RAD 07:34 | PROVIDERS: ATTENDING PHYSICIAN Nurse Practitioner Family; FAMILY PHYSICIAN Family Medicine | DX: R91.1 Solitary pulmonary nodule (principal) | CPT/HCPCS: 70491; 71250; Q9967 ==

== ENCOUNTER 2025-08-12 06:03 | Day surgery (SDC) | payer OTHER, SELFPAY ==
[2025-08-09 09:00] LABS: Hematocrit 38.3 % (39.0-52.0); Hemoglobin 14.1 g/dL (13.0-18.0); Mean Corp Hgb Conc. 36.8 g/dL (33.0-37.0); Mean Corpuscular Volume 83.1 fL (80.0-94.0); Platelet Count 168 10^3/uL (130-400); Red Cell Dist. Width 13.0 % (11.5-14.5)
[2025-08-09 09:08] LABS: INR 1.21; PT 15.6 Sec (11.4-14.6)
[2025-08-09 09:10] LABS: APTT 56.2 Sec (23.4-35.0)
[2025-08-09 12:01] LABS: Blood Urea Nitrogen 24 mg/dl (9-20); Calcium 10.0 mg/dl (8.4-10.2); Carbon Dioxide 23 mmol/L (22-30); Chloride 102 mmol/L (98-107); Glucose 151 mg/dl (70-99); Potassium 3.9 mmol/L (3.5-5.1); Sodium 134 mmol/L (135-145); eGFR > 60.00
[2025-08-09 16:40] VITALS: BMI 35.1
--- NOTE | 2025-08-09 16:46 | PTCARENOTE ---
Dana Warren at Dr. Alarcon's office made aware.
[2025-08-12] VITALS (8 sets, daily range): BP systolic 123–154; BP diastolic 70–91; BMI 34.5
[2025-08-12] MEDS: VENTOLIN NEBULES 2.5 MG INH (08:55)
[2025-08-12 08:59] LABS: Glucose - Point of Care 143 mg/dl (70-99)
[2025-08-12] MEDS: NSS 500 IV (09:05)
[2025-08-12 10:48] LABS: Glucose - Point of Care 152 mg/dl (70-99)
== END 2025-08-12 12:30 | disposition home or self-care (01) ==
LOC: SDS 06:03
PROVIDERS: ATTENDING PHYSICIAN Internal Medicine Critical Care Medicine; FAMILY PHYSICIAN Family Medicine
DX: R91.1 Solitary pulmonary nodule (principal)
CPT/HCPCS: 31628; 31623; 31627; 31625; 31654; 31624; 36415; 71045; 76000; 80048; 82962; 85027; 85610; 85730; 87070; 87077; 87102; 87116; 87185; 87205; 88112; 88173; 88305; 94640; C1887

== ENCOUNTER → 2025-10-30 09:21 | Outpatient (REF) | payer OTHER, SELFPAY | LOC: HWRAD 09:21 | PROVIDERS: ATTENDING PHYSICIAN Internal Medicine; FAMILY PHYSICIAN Family Medicine | DX: R91.1 Solitary pulmonary nodule (principal) | CPT/HCPCS: 71250 ==